=== PATIENT | male | born 1990 | race African-American/Black ===

== ENCOUNTER 2019-11-04 20:49 | Emergency (ER) | payer SELFPAY ==
[~2019-11-04] VITALS: Ht 167.6 cm; Wt 88.6 kg
[2019-11-04 21:00] VITALS: BP 139/75
[2019-11-04 21:11] LABS: BILIRUBIN,URINE NEGATIVE (NEG); CLARITY,URINE CLEAR; COLOR,URINE YELLOW; NITRITE,URINE NEGATIVE (NEG); PH,URINE 5.5 (<5.0-8.0); PROTEIN,URINE NEGATIVE (NEG-TRACE); UROBILINOGEN,URINE 0.2 mg/dL (0.2 mg/dL)
--- NOTE | 2019-11-04 21:12 | PHYS DOC ---
General Adult EDM: Chief Complaint: URINARY FREQUENCY HPI: HPI: Patient is a 29 year old male who presents with awoke this morning and states that he had a hard time starting his stream. He states that he is having some urinary frequency. He states that he does have sexually transmitted disease concerns. Patient denies abdominal pain, nausea, vomiting, fever, back pain. He states that it does burn with urination. Patient denies past medical history. He denies taking any medications. Review of Systems: Review of Systems: Constitutional: Denies fever or chills. [] Eyes: Denies change in visual acuity. [] HENT: Denies nasal congestion or sore throat. [] Respiratory: Denies cough or shortness of breath. [] Cardiovascular: Denies chest pain or edema. [] GI: Denies abdominal pain, nausea, vomiting, bloody stools or diarrhea. [] : + dysuria. +STD concerns.[] Musculoskeletal: Denies back pain or joint pain. [] Integument: Denies rash. [] Neurologic: Denies headache, focal weakness or sensory changes. [] Endocrine: Denies polyuria or polydipsia. [] Lymphatic: Denies swollen glands. [] Psychiatric: Denies depression or anxiety. [] Heart Score: Risk Factors: Risk Factors: DM, Current or recent (<one month) smoker, HTN, HLP, family history of CAD, obesity. Risk Scores: Score 0 - 3: 2.5% MACE over next 6 weeks - Discharge Home Score 4 - 6: 20.3% MACE over next 6 weeks - Admit for Clinical Observation Score 7 - 10: 72.7% MACE over next 6 weeks - Early Invasive Strategies Physical Exam: PE: Constitutional: Well developed, well nourished, no acute distress, non-toxic appearance. [] HENT: Normocephalic, atraumatic, bilateral external ears normal, oropharynx moist, no oral exudates, nose normal. [] Eyes: PERRLA, EOMI, conjunctiva normal, no discharge. [] Neck: Normal range of motion, no tenderness, supple, no stridor. [] Cardiovascular:Heart rate regular rhythm, no murmur [] Lungs & Thorax: Bilateral breath sounds clear to auscultation [] Abdomen: Bowel sounds normal, soft, no tenderness, no masses, no pulsatile masses. [] Skin: Warm, dry, no erythema, no rash. [] Back: No tenderness, no CVA tenderness. [] Extremities: No tenderness, no cyanosis, no clubbing, ROM intact, no edema. [] Neurologic: Alert and oriented X 3, normal motor function, normal sensory function, no focal deficits noted. [] Psychologic: Affect normal, judgement normal, mood normal. Normal Physical Exam[] EKG: EKG: [] Radiology/Procedures: Radiology/Procedures: [] Course & Med Decision Making: Course & Med Decision Making Pertinent Labs and Imaging studies reviewed. (See chart for details) See HPI. Patient states he is urinating and he does feel like he is emptying his bladder. Abdomen is soft and nontender. Vital signs within normal limits. Ambulatory with a steady gait. Alert and oriented x4. Skin pink warm and dry. No CVA tenderness. Denies penile discharge and there is no penile discharge or sores. Patient denies any testicular pain or swelling. Urinalysis shows no infection. [] Dragon Disclaimer: Dragon Disclaimer: This electronic medical record was generated, in whole or in part, using a voice recognition dictation system. Departure Departure Impression: Primary Impression: Concern about STD in male without diagnosis Additional Impression: Urinary symptom or sign Disposition: 01 HOME, SELF-CARE Condition: STABLE Referrals: NON,STAFF (PCP) Patient Instructions: Sexually Transmitted Disease Additional Instructions: You will be notified of 48 hours if you are positive for sexually transmitted diseases. You have been treated today for chlamydia and gonorrhea. Notify all sexual partners. Drink plenty of fluids. Follow-up with [facility] if not getting better. Justicifation of Admission Dx: Justifications for Admission: Justification of Admission Dx: N/A DEMETRIA MCNEILL HEALTH INFORMATION PROVIDER Nov 04, 2019 21:12
[2019-11-04 21:16] LABS: BACTERIA,URINE 0 /HPF (0-FEW); RBC,URINE 0 /HPF (0-2)
[2019-11-04] MEDS ORDERED: cefTRIAXone IM 250 MG VIAL IM ONE (22:00)
[2019-11-04] MEDS ORDERED: AZITHROMYCIN 250 MG TABLET. PO ONE (22:00)
== END 2019-11-04 21:37 | disposition home or self-care (01) ==
LOC: ER 20:49
DX: R35.0 Frequency of micturition (principal); R30.0 Dysuria; Z20.2 Contact with and (suspected) exposure to infections with a predominantly sexual mode of transmission
CPT/HCPCS: 81001; 87491; 87591; 96372; 99283; J0696

== ENCOUNTER 2021-04-15 15:24 | Emergency (ER) | payer SELFPAY ==
[~2021-04-15] VITALS: Ht 175.3 cm; Wt 87.9 kg
[2021-04-15 15:30] VITALS: BP 145/66
[2021-04-15] MEDS ORDERED: IBUPROFEN 400 MG TABLET. PO ONE (16:00)
--- NOTE | 2021-04-15 16:03 | PHYS DOC ---
Past Medical History Past Medical History: No Pertinent History Past Surgical History: No Surgical History Smoking Status: Never Smoker Alcohol Use: None General Adult EDM: Chief Complaint: LOWER EXT PAIN HPI: HPI: Patient is a 30 year old male who presents with yesterday he was getting out of the shower when his leg slipped and stretched slightly too far. He states he did not fall and he did catch himself. He states about an hour after this happened he began having left groin/hip pain. He states that it hurt hurts to walk but he can bear weight on the extremity. He states he took some Tylenol yesterday and today but it did not help. Denies focal weakness, numbness or tingling, extremity edema, skin color change, skin temperature change, hitting his head, neck pain, back pain. Review of Systems: Review of Systems: Constitutional: Denies fever or chills. [] Eyes: Denies change in visual acuity. [] HENT: Denies nasal congestion or sore throat. [] Respiratory: Denies cough or shortness of breath. [] Cardiovascular: Denies chest pain or edema. [] GI: Denies abdominal pain, nausea, vomiting, bloody stools or diarrhea. [] : Denies dysuria. [] Musculoskeletal: Denies back pain or joint pain. [] Integument: Denies rash. [] Neurologic: Denies headache, focal weakness or sensory changes. [] Endocrine: Denies polyuria or polydipsia. [] Lymphatic: Denies swollen glands. [] Psychiatric: Denies depression or anxiety. [] Heart Score: C/O Chest Pain: No Current Medications: Current Medications Medications (Trade) Dose Ordered Sig/[facility] Start Time Stop Time Status Last Admin Dose Admin Ibuprofen (Motrin) 800 mg 1X ONCE 04/15/21 16:00 04/15/21 16:01 Allergies: Allergies: Allergies Coded Allergies Type Severity Reaction Last Updated Verified No Known Drug Allergies 11/04/19 No Physical Exam: PE: Constitutional: Well developed, well nourished, no acute distress, non-toxic appearance. [] HENT: Normocephalic, atraumatic, bilateral external ears normal, oropharynx moist, no oral exudates, nose normal. [] Eyes: PERRLA, EOMI, conjunctiva normal, no discharge. [] Neck: Normal range of motion, no tenderness, supple, no stridor. [] Cardiovascular:Heart rate regular rhythm, no murmur [] Lungs & Thorax: Bilateral breath sounds clear to auscultation [] Abdomen: Bowel sounds normal, soft, no tenderness, no masses, no pulsatile masses. [] Skin: Warm, dry, no erythema, no rash. [] Back: No tenderness, no CVA tenderness. [] Extremities: Left groin tenderness, no cyanosis, no clubbing, ROM intact, no edema. [] Neurologic: Alert and oriented X 3, normal motor function, normal sensory function, no focal deficits noted. [] Psychologic: Affect normal, judgement normal, mood normal. [] Current Patient Data: Vital Signs: Vital Signs Date Time Temp Pulse Resp B/P (MAP) Pulse Ox O2 Delivery O2 Flow Rate FiO2 04/15/21 15:30 98.2 82 16 145/66 (92) 98 Room Air 98.2 EKG: EKG: [] Radiology/Procedures: Radiology/Procedures: [] Impression: [facility] [address] [place] [address] IMAGING REPORT Signed PATIENT: JAIRO GUZMAN ACCOUNT: [id number] : 1990 LOCATION: ER AGE: 30 SEX: M EXAM STATUS: REG ER ORD. PHYSICIAN: DEMETRIA MCNEILL APRN REASON: pain after slipping in shower in the hip/groin pain PROCEDURE: HIP LEFT 1 VIEW WITH PELVIS XR HIP (WITH OR WITHOUT PELVIS)LEFT 1 VIEW History: Reason: pain after slipping in shower in the hip/groin pain / Spl. Instructions: / History: Technique: AP view the pelvis and 2 additional views of the left hip Comparison: None. Findings: No dislocation. No acute fracture. Mild prominence of the femoral head/neck junction with synovial herniation pit, can be seen with femoral acetabular impingement morphology. Congenitally ununited S1 posterior elements. Impression: 1. No acute osseous abnormality. Electronically signed by: Shabbir Mackenzie DO (04/15/2021 4:22 PM) [facility] DICTATED and SIGNED BY: SHABBIR MACKENZIE DO DATE: 04/15/21 [id number] 0 Course & Med Decision Making: Course & Med Decision Making Pertinent Labs and Imaging studies reviewed. (See chart for details) See HPI. Alert and oriented x4. Ambulatory with steady gait. No numbness or tingling. No extremity edema. Tenderness at the left groin without bulging or deformity. No joint laxity. Full range of motion except there is pain with movement at the joint. Skin pink warm and dry. Cap refill less than 2 seconds. Popliteal pulse strong and present. X-rays show no acute findings. Patient is given 800 mg ibuprofen. I gave him prescription for ibuprofen. He is to follow-up with primary care physician. [] Fareed Disclaimer: Fareed Disclaimer: This electronic medical record was generated, in whole or in part, using a voice recognition dictation system. Departure Departure Impression: Primary Impression: Left groin pain Disposition: HOME / SELF CARE / HOMELESS Condition: STABLE Referrals: NON,STAFF (PCP) Patient Instructions: Groin Strain Additional Instructions: Rest. Use a heating pad to the area. Can also use ice to the area. Take ibuprofen as prescribed and with food. Follow-up with your primary care physician. Scripts Cyclobenzaprine Hcl (CYCLOBENZAPRINE HCL) 10 Mg Tablet 1 TAB PO TID, #15 TAB Prov: DEMETRIA MCNEILL APRN 04/15/21 Ibuprofen (IBUPROFEN) 800 Mg Tablet 800 MG PO PRN Q8HRS PRN for INFLAMMATION, #25 TAB Prov: DEMETRIA MCNEILL APRN 04/15/21 DEMETRIA MCNEILL APRN Apr 15, 2021 16:03
--- NOTE | 2021-04-15 16:24 | RAD ---
XR HIP (WITH OR WITHOUT PELVIS)LEFT 1 VIEW History: Reason: pain after slipping in shower in the hip/groin pain / Spl. Instructions: / History: Technique: AP view the pelvis and 2 additional views of the left hip Comparison: None. Findings: No dislocation. No acute fracture. Mild prominence of the femoral head/neck junction with synovial he rniation pit, can be seen with femoral acetabular impingement morphology. Congenitally ununited S1 po sterior elements. Impression: 1. No acute osseous abnormality. Electronically signed by: Shabbir Fields DO (04/15/2021 4:22 PM) [facility]
[2021-04-15] MEDS ORDERED: CYCL10TA19 PO (16:29)
[2021-04-15] MEDS ORDERED: IBUP-1060 PO (16:29)
== END 2021-04-15 16:50 | disposition home or self-care (01) ==
LOC: ER 15:24
DX: R10.32 Left lower quadrant pain (principal); M25.552 Pain in left hip; G89.11 Acute pain due to trauma; W18.39XA Other fall on same level, initial encounter; Y93.89 Activity, other specified; Y92.89 Other specified places as the place of occurrence of the external cause; Y99.8 Other external cause status
CPT/HCPCS: 73501; 99283

== ENCOUNTER 2021-05-04 23:47 | Emergency (ER) | payer SELFPAY ==
[~2021-05-04] VITALS: Ht 165.1 cm; Wt 87.7 kg
[~2021-05-04 23:47] MED LIST: CYCL10TA19 PO; IBUP-1060 PO
[2021-05-05 00:37] LABS: BACTERIA,URINE 0 /HPF (0-FEW); RBC,URINE 0 /HPF (0-2); WBC,URINE OCC /HPF (0-4)
--- NOTE | 2021-05-05 01:06 | PHYS DOC ---
Past Medical History Past Medical History: No Pertinent History Past Surgical History: No Surgical History Smoking Status: Never Smoker Alcohol Use: None Adult General Chief Complaint Chief Complaint: PAIN ON URINATION HPI HPI The patient is a 31-year-old male who presents for evaluation of 3 days of dysuria. States it soler when he urinates. States symptoms started after unprotected intercourse with a new partner. Denies fevers, nausea or vomiting, abdominal pain of any kind, flank pain, midline back pain, hematuria, polyuria or oliguria, scrotal or testicular or perineal or rectal pain, changes in bowel habits. Review of Systems Review of Systems A 12 point review of systems was completed and was negative except where noted in HPI above. Current Medications Current Medications Current Medications Medications (Trade) Dose Ordered Sig/Sarah Start Time Stop Time Status Last Admin Dose Admin Azithromycin (Zithromax) 1,000 mg 1X ONCE 05/05/21 00:45 05/05/21 00:46 UNV Ceftriaxone Sodium (Rocephin Im) 500 mg 1X ONCE 05/05/21 00:45 05/05/21 00:46 UNV Allergies Allergies Allergies Coded Allergies Type Severity Reaction Last Updated Verified No Known Drug Allergies 11/04/19 No Physical Exam Physical Exam 31-year-old male appearing nontoxic and in no acute distress. Head is normocephalic and atraumatic. Neck is supple and nontender. Oropharynx is moist. Lungs are clear to auscultation at all stations. There is a normal S1 and S2 without rubs or gallops and capillary refill is appropriate, less than 2 seconds globally. Abdomen is soft, nontender and nondistended. Skin is warm and dry without cyanosis, clubbing or edema. Psychiatrically, the patient demonstrates appropriate mood and affect and is alert. Evaluation of the groin reveals inguinal region, penis, scrotum and testicles without erythema, warmth, swelling, tenderness, rashes, lesions, lymphadenopathy or other abnormality seen. Current Patient Data Vital Signs Vital Signs Date Time Temp Pulse Resp B/P (MAP) Pulse Ox O2 Delivery O2 Flow Rate FiO2 05/05/21 00:15 98.2 66 18 137/57 (83) 99 Room Air 98.2 Lab Values Laboratory Tests Test 05/05/21 00:20 Urine Collection Type Void Urine Color (Auto) Light yellow Urine Turbidity Clear Urine pH (Auto) 6.0 (<5.0-8.0) Urine Specific [place] 1.025 (1.000-1.030) Urine Protein (Auto) Negative mg/dL (Negative) Urine Glucose (Auto)(UA) Negative mg/dL (Negative) Urine Ketones (Auto) Negative mg/dL (Negative) Urine Blood (Auto) Negative (Negative) Urine Nitrite Negative (Negative) Urine Bilirubin (Auto) Negative (Negative) Urine Urobilinogen (Auto) Normal mg/dL (Normal) Urine Leukocyte Esterase (Auto) Negative (Negative) Urine RBC 0 /HPF (0-2) Urine WBC Occ /HPF (0-4) Urine Squamous Epithelial Cells Occ /LPF Urine Bacteria 0 /HPF (0-FEW) Urine Mucus Mod /LPF EKG EKG [] Radiology/Procedures Radiology/Procedures [] Course & Med Decision Making Course & Med Decision Making Urinalysis negative. Discussed options with patient and he would like to be empirically treated for gonorrhea and chlamydia. Have given doses of the appropriate antibiotics. Have sent gonorrhea and Chlamydia testing. Patient is to follow-up closely with the health department for additional STD testing. He understands that we will contact him if his gonorrhea or chlamydia test comes back positive. He understands that if he feels worse instead of better or develops other new symptoms of concern that he should return to the emergency department immediately for reevaluation. All questions are answered. Dragon Disclaimer Dragon Disclaimer This electronic medical record was generated, in whole or in part, using a voice recognition dictation system. Departure Departure Impression: Primary Impression: Dysuria Additional Impression: Possible exposure to STD Disposition: 01 HOME / SELF CARE / HOMELESS Condition: IMPROVED Patient Instructions: Dysuria, Sexually Transmitted Disease Additional Instructions: Follow-up very closely at the [facility] for additional STD testing (we recommend you get tested for HIV and syphilis at a minimum). We have treated you for gonorrhea and chlamydia and will let you know if either of those tests come back positive. If any of your STD test comes back positive it is very important that you let your sexual partners know so they may be tested and treated as well. Return to the emergency department right away for worsening symptoms of any kind or with any other new symptoms of concern. Problem Qualifiers STEVEN ELDER MD May 05, 2021 01:06
[2021-05-05] MEDS: cefTRIAXone IM 500 MG VIAL. IM ONE (01:19)
[2021-05-05 01:20] VITALS: BP 135/79
[2021-05-05] MEDS: AZITHROMYCIN 250 MG TABLET. PO ONE (01:20)
== END 2021-05-05 01:25 | disposition home or self-care (01) ==
LOC: ER 23:47
DX: R30.0 Dysuria (principal); Z20.2 Contact with and (suspected) exposure to infections with a predominantly sexual mode of transmission
CPT/HCPCS: 81001; 87491; 87591; 96372; 99283; J0696